=== PATIENT | female | born 1980 | race Caucasian/White ===

== ENCOUNTER 2019-01-03 07:35 | Emergency (ER) | payer OTHER ==
--- NOTE | 2019-01-03 08:58 | RAD REPORT ---
EXAM DESCRIPTION: RAD - Chest Pa And Lat (2 Views) - 01/03/2019 8:38 am CLINICAL HISTORY: Cough;Fever Chest pain. COMPARISON: No comparisons FINDINGS: The lungs are clear. The heart is normal in size. No displaced fractures. IMPRESSION: No acute or concerning finding suspected.
[2019-01-03] MEDS ORDERED: KETOROLAC 30 MG/ML INJ ONE (09:17)
[2019-01-03] MEDS ORDERED: DEXAMETHASONE 4 MG/ML VIAL ONE (09:17)
--- NOTE | 2019-01-03 09:29 | EDPHYS ---
Physician Documentation [facility] Name: Ruth Ann Esposito Age: 38 yrs Sex: Female : 1980 Arrival Date: 01/03/2019 Time: 07:39 Bed 8 Private MD: None, None ED Physician Sudhir Randall HPI: 01/03 08:30 This 38 yrs old Female presents to ER via Ambulatory with complaints of Flu pm1 Symptoms. 08:30 The patient or guardian reports cough, with no sputum, sore throat, sinus pain. Onset: pm1 The symptoms/episode began/occurred yesterday. Modifying factors: The symptoms are alleviated by nothing. the symptoms are aggravated by nothing. Associated signs and symptoms: Pertinent positives: earache, fever, sore throat, Pertinent negatives: chest pain, diarrhea, vomiting. Severity of symptoms: in the emergency department the symptoms are worse. The patient has not recently seen a physician. Patient was at a cook off yesterday and started getting symptoms of cough, sinus pain, subjective fever, bilateral ear pain, and sore throat. Patient is afraid that she might have pneumonia. 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 - Social history:: Smoking status: Patient/guardian denies using tobacco. - Ebola Screening: : No symptoms or risks identified at this time. ROS: 08:30 Eyes: Negative for injury, pain, redness, and discharge. pm1 08:30 Neck: Negative for injury, pain, and swelling, Cardiovascular: Negative for chest pain, palpitations, and edema. 08:30 Abdomen/GI: Negative for abdominal pain, nausea, vomiting, diarrhea, and constipation, Back: Negative for injury and pain, : Negative for injury, bleeding, discharge, and swelling, MS/Extremity: Negative for injury and deformity, Skin: Negative for injury, rash, and discoloration, Neuro: Negative for headache, weakness, numbness, tingling, and seizure. 08:30 Constitutional: Positive for body aches, fever, Negative for poor PO intake. 08:30 ENT: Positive for ear pain, sinus congestion, sinus pain, sore throat, Negative for drainage from ear(s). 08:30 Respiratory: Positive for cough, with no reported sputum, Negative for shortness of breath, sputum production, wheezing. Exam: 08:30 Constitutional: This is a well developed, well nourished patient who is awake, alert, pm1 and in no acute distress. Eyes: Pupils equal round and reactive to light, extra-ocular motions intact. Lids and lashes normal. Conjunctiva and sclera are non-icteric and not injected. Cornea within normal limits. Periorbital areas with no swelling, redness, or edema. ENT: Nares patent. No nasal discharge, no septal abnormalities noted. Tympanic membranes are normal and external auditory canals are clear. Oropharynx with no redness, swelling, or masses, exudates, or evidence of obstruction, uvula midline. Mucous membranes moist. 08:30 Neck: Trachea midline, no thyromegaly or masses palpated, and no cervical lymphadenopathy. Supple, full range of motion without nuchal rigidity, or vertebral point tenderness. No Meningismus. Chest/axilla: Normal chest wall appearance and motion. Nontender with no deformity. No lesions are appreciated. Cardiovascular: Regular rate and rhythm with a normal S1 and S2. No gallops, murmurs, or rubs. Normal PMI, no JVD. No pulse deficits. Respiratory: Lungs have equal breath sounds bilaterally, clear to auscultation and percussion. No rales, rhonchi or wheezes noted. No increased work of breathing, no retractions or nasal flaring. Abdomen/GI: Soft, non-tender, with normal bowel sounds. No distension or tympany. No guarding or rebound. No evidence of tenderness throughout. Back: No spinal tenderness. No costovertebral tenderness. Full range of motion. Skin: Warm, dry with normal turgor. Normal color with no rashes, no lesions, and no evidence of cellulitis. MS/ Extremity: Pulses equal, no cyanosis. Neurovascular intact. Full, normal range of motion. 08:30 Head/face: Sinus tenderness, that is mild, is located over the left frontal sinus and right maxillary sinus. 08:30 Neuro: Orientation: is normal, Motor: is normal, moves all fours. Vital Signs: 07:51 Weight 74.84 kg (R); Height 5 ft. 5 in. (165.10 cm) (R); Pain 8/10; aa5 07:54 BP 143 / 106; Pulse 105; Resp 22; Temp 99.6; Pulse Ox 100% on R/A; pc1 09:36 BP 122 / 97; Pulse 97; Resp 21; Pulse Ox 98% on R/A; Pain 9/10; jb1 07:51 Body Mass Index 27.46 (74.84 kg, 165.10 cm) aa5 MDM: 07:48 Patient medically screened. pm1 08:59 Data reviewed: vital signs. Data interpreted: Pulse oximetry: on room air is 100 %. pm1 Interpretation: normal. Counseling: I had a detailed discussion with the patient and/or guardian regarding: the historical points, exam findings, and any diagnostic results supporting the discharge/admit diagnosis, lab results, radiology results. 01/03 08:04 Order name: Flu; Complete Time: 08:38 pm1 01/03 08:04 Order name: Strep; Complete Time: 08:28 pm1 01/03 08:04 Order name: Chest Pa And Lat (2 Views) XRAY; Complete Time: 08:58 pm1 01/03 09:02 Order name: Throat Culture EDMS Administered Medications: 09:10 Drug: TORadol 60 mg Route: IM; Site: right gluteus; hj 09:26 Follow up: Response: Pain is decreased bp 09:12 Drug: Decadron 10 mg {Note: GIVEN PO.} Route: IM; Site: Other; hj 09:26 Follow up: Response: Pain is decreased bp 09:26 Drug: Zofran 4 mg Route: PO; bp 10:04 Follow up: Response: Nausea is decreased bp 10:15 Drug: [place] 10 mg-325 mg 1 tabs Route: PO; bp 10:15 Follow up: Response: Medication administered at discharge. bp Disposition: 14:15 Co-signature as Attending Physician, Sudhir Randall MD I agree with the assessment and karlene plan of care. Disposition: 01/03/19 09:29 Discharged to Home. Impression: Acute pharyngitis, Otalgia, bilateral. - Condition is Stable. - Discharge Instructions: Earache, Adult, Pharyngitis. - Prescriptions for Augmentin 875- 125 mg Oral Tablet - take 1 tablet by ORAL route every 12 hours for 10 days; 20 tablet. Medrol (Alvin) 4 mg Oral Tablets, Dose Pack - take 1 tablet by ORAL route as directed - follow package instructions; 1 packet. Diclofenac Sodium 75 mg Oral Tablet Sustained Release - take 1 tablet by ORAL route 2 times per day; 30 tablet. - Medication Reconciliation Form, Thank You Letter, Antibiotic Education, Work release form form. - Follow up: Emergency Department; When: As needed; Reason: Worsening of condition. Follow up: Private Physician; When: 2 - 3 days; Reason: Recheck today's complaints, Continuance of care, Re-evaluation by your physician. - Problem is new. - Symptoms have improved. Signatures: Dispatcher [employer] EDMS Sudhir Randall MD MD cha Calderon, Audri, RN RN aa5 Domingo Moy RN RN hj Sina Rosales, RIVERA BIODIESEL PLANT MANAGER pm1 Valeriy Harvey RN RN bp Corrections: (The following items were deleted from the chart) 10:21 09:29 01/03/2019 09:29 Discharged to Home. Impression: Acute pharyngitis; Otalgia, bp bilateral. Condition is Stable. Forms are Medication Reconciliation Form, Thank You Letter, Antibiotic Education, Prescription Opioid Use. Follow up: Emergency Department; When: As needed; Reason: Worsening of condition. Follow up: Private Physician; When: 2 - 3 days; Reason: Recheck today's complaints, Continuance of care, Re-evaluation by your physician. Problem is new. Symptoms have improved. pm1
--- NOTE | 2019-01-03 09:29 | ER ---
Nurse's Notes [facility] Name: Ruth Ann Esposito Age: 38 yrs Sex: Female : 1980 Arrival Date: 01/03/2019 Time: 07:39 Bed 8 Private MD: None, None Diagnosis: Acute pharyngitis;Otalgia, bilateral Presentation: 01/03 07:43 Presenting complaint: Patient states: "my right lung corral and I was at a cook-off aa5 yesterday so I don't know if I took too much smoke in". Pt reports sore throat, hoarse voice, and cough since yesterday. Pt also reports fever. 07:43 Transition of care: patient was not received from another setting of care. Onset of aa5 symptoms was December 2018. Risk Assessment: Do you want to hurt yourself or someone else? Patient reports no desire to harm self or others. Care prior to arrival: None. 07:43 Method Of Arrival: Ambulatory aa5 07:43 Acuity: BELINDA 3 aa5 07:58 Initial Sepsis Screen: Does the patient meet any 2 criteria? RR > 20 per min. No. pc1 Patient's initial sepsis screen is negative. Does the patient have a suspected source of infection? Yes: Other: Rule out strep. Triage Assessment: 07:57 General: Appears uncomfortable, well groomed, Behavior is calm, cooperative. 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 - Social history:: Smoking status: Patient/guardian denies using tobacco. - Ebola Screening: : No symptoms or risks identified at this time. Screenin:56 Abuse screen: Denies threats or abuse. Denies injuries from another. Nutritional pc1 screening: No deficits noted. Tuberculosis screening: No symptoms or risk factors identified. Fall Risk None identified. Assessment: 07:54 Pain: Complains of pain in chest Pain does not radiate. Pain currently is 9 out of 10 pc1 on a pain scale. Quality of pain is described as Burning sensation upon coughing. Respiratory: Breath sounds are clear bilaterally. 09:40 Reassessment: D/C ON HOLD FOR PROVIDER RE-EVAL. bp 10:04 Reassessment: Rx GIVEN TO FAMILY TO HAVE FILLED. PT REFUSING D/C UNTIL GIVEN "SOMETHING bp STRONGER". PROVIDER AWARE. 10:18 Reassessment: PT D/C HOME AMBULATORY WITH FAMILY, DX WITH SINUS INFECTION. bp Vital Signs: 07:51 Weight 74.84 kg (R); Height 5 ft. 5 in. (165.10 cm) (R); Pain 8/10; aa5 07:54 BP 143 / 106; Pulse 105; Resp 22; Temp 99.6; Pulse Ox 100% on R/A; pc1 09:36 BP 122 / 97; Pulse 97; Resp 21; Pulse Ox 98% on R/A; Pain 9/10; jb1 07:51 Body Mass Index 27.46 (74.84 kg, 165.10 cm) aa5 ED Course: 07:39 Patient arrived in ED. dl4 07:39 None, None is Private Physician. dl4 07:43 Arm band placed on. aa5 07:47 Valeriy Harvey, MUKESH is Primary Nurse. bp 07:48 Sina Rosales, ERP CONSULTANT is PHCP. pm1 07:49 Triage completed. aa5 08:24 Sudhir Randall MD is Attending Physician. pm1 08:25 Patient moved to radiology via wheelchair. jb2 08:32 Patient has correct armband on for positive identification. Bed in low position. Call bp light in reach. Side rails up X 1. 08:33 X-ray completed. Patient tolerated procedure well. Patient moved back from radiology. jb2 08:38 Chest Pa And Lat (2 Views) XRAY In Process Unspecified. EDMS 10:19 No provider procedures requiring assistance completed. IV discontinued, intact, bp bleeding controlled, No redness/swelling at site. Pressure dressing applied. Administered Medications: 09:10 Drug: TORadol 60 mg Route: IM; Site: right gluteus; hj 09:26 Follow up: Response: Pain is decreased bp 09:12 Drug: Decadron 10 mg {Note: GIVEN PO.} Route: IM; Site: Other; hj 09:26 Follow up: Response: Pain is decreased bp 09:26 Drug: Zofran 4 mg Route: PO; bp 10:04 Follow up: Response: Nausea is decreased bp 10:15 Drug: [place] 10 mg-325 mg 1 tabs Route: PO; bp 10:15 Follow up: Response: Medication administered at discharge. bp Outcome: 09:29 Discharge ordered by . pm1 10:19 Discharged to home ambulatory, with family. bp 10:19 Condition: stable 10:19 Discharge instructions given to patient, Instructed on discharge instructions, follow up and referral plans. medication usage, Demonstrated understanding of instructions, follow-up care, medications, Prescriptions given X 3. 10:21 Patient left the ED. bp Signatures: Dispatcher [employer] EDMS Adam Ch jb1 Layo Galvez jb2 Emely Valdivia RN RN aa5 Domingo Moy RN RN Sina Rosales, RIVERA ERP CONSULTANT pm1 Valeriy Harvey RN RN Pedro Luis Jarquin dl4 Sina Campos pc1
[2019-01-03] MEDS ORDERED: ONDANSETRON 4 MG (ODT) TAB ONE (09:34)
[2019-01-03] MEDS ORDERED: HYDROCODONE/APAP 10/325 TAB ONE (10:22)
== END 2019-01-03 10:21 | disposition home or self-care (01) ==
LOC: ER 07:35
DX: J02.9 Acute pharyngitis, unspecified (principal); H92.03 Otalgia, bilateral; Z88.6 Allergy status to analgesic agent; Z88.8 Allergy status to other drugs, medicaments and biological substances
CPT/HCPCS: 71046; 87070; 87081; 87804; 96372; 99283

== ENCOUNTER 2021-01-30 15:24 | Emergency (ER) | payer BC ==
--- OUTSIDE RECORDS SUMMARY | 2021-01-30 15:28 | XMS REPORT | Continuity of Care Document ---
:1980 Author Organization [facility] t Address [address] [place] [place] [address] Care Team Providers Name Role Phone AGUSTO Attending Clinician Unavailable LIVE Attending Clinician Unavailable Lis KRAMER, Darby Attending Clinician Doctor Unassigned, Name Attending Clinician Unavailable Ceci KRAMER Attending Clinician Gonzalez BARAJAS H Attending Clinician Problems This patient has no known problems. Allergies, Adverse Reactions, Alerts This patient has no known allergies or adverse reactions. Medications This patient has no known medications. Procedures This patient has no known procedures. Encounters Start End Encounter Admission Attending Care Care Encounter Source Date/Time Date/Time Type Type Clinicians Facility Department ID 2020-11-14 2020-11-14 Emergency [facility] [id number] [place] 00:00:00 00:00:00 PELON [address] 2020-10-16 2020-10-16 Outpatient [facility] [id number] [place] 00:00:00 00:00:00 MARTHA [address] 2020-10-11 2020-10-11 Outpatient [facility] [id number] [place] 00:00:00 00:00:00 MARTHA [address] 2020-10-11 2020-10-11 Outpatient [facility] [id number] [place] 00:00:00 00:00:00 MARTHA [address] 2020-09-19 2020-09-19 Emergency [facility] [id number] 15:21:00 20:20:00 Ly Veliz [id number] [place] [id number] [place] [id number] 2020-09-19 2020-09-19 Orders Doctor ARACELIS [id number] 00:00:00 00:00:00 Only Unassigned, TRACY [id number] [facility] [id number] 2020-07-08 2020-07-08 Refill [facility] [id number] 00:00:00 00:00:00 [facility] [id number] [place] [id number] [facility] [id number] [address] 2020-06-12 2020-06-12 Telephone ARACELIS Roth [id number] 00:00:00 00:00:00 Dheeraj MOLINA [id number] [facility] [id number] Results This patient has no known results.
--- NOTE | 2021-01-30 16:47 | RAD REPORT ---
EXAM DESCRIPTION: CT - [id number] - 01/30/2021 4:24 pm CLINICAL HISTORY: TRAUMA, head and neck injury, headache, neck pain COMPARISON: <Comparisons> TECHNIQUE: Axial 5 mm thick images of the head were obtained. Axial 2 mm thick images of the cervic al spine were obtained with sagittal and coronal reconstruction images generated and reviewed. All CT scans are performed using dose optimization technique as appropriate and may include automated exposure control or mA/KV adjustment according to patient size. FINDINGS: No intracranial hemorrhage, mass, edema or acute intracranial finding. No suspicion for ac asa'[place] infarction. No extra-axial fluid collections. Mastoid air cells are clear. Left deviation of the nasal septum is present. A 14 millimeter rounded mass in the medial right maxillary sinus is probably a small polyp. Patient has a prominent sella turcica with CSF attenuation. There does appear to be p ituitary tissue along the floor of the sella. This is most likely an empty sella configuration rather than a cystic sella mass. No globe or orbit abnormality seen. Cervical body height and alignment are normal. No disk space narrowing. No fracture or acute bony abn ormality. Small calcific densities adjacent to the anterior margin C5 and C6 inferior endplates do no t represent an acute process. Central canal detail is inherently limited. No paraspinal mass or hematoma. IMPRESSION: No hemorrhage, edema or acute intracranial finding. Negative CT cervical spine examination for acute or significant finding. Patient has a prominent sella turcica that is believed to be empty sella variant rather than cystic s melvi mass. If there are ongoing clinical concerns, patient can undergo nonemergent outpatient contras t-enhanced MR pituitary study.
--- NOTE | 2021-01-30 17:07 | EDPHYS ---
[facility] Name: Ruth Ann Esposito Age: 40 yrs Sex: Female : 1980 Arrival Date: 01/30/2021 Time: 15:26 Bed Waiting Private MD: Hector Soto C ED Physician Jayme Shaffer HPI: 01/30 18:06 This 40 yrs old Female presents to ER via Wheelchair with complaints of Head kb Injury With LOC-Adult. 18:06 The patient or guardian reports injury, swelling, tenderness. The complaints affect the kb left parietal area. Context of injury: The problem was sustained at home, resulted from a direct blow, frozen chicken. Onset: The symptoms/episode began/occurred just prior to arrival. Associated signs and symptoms: Loss of consciousness: This patient did not experience any loss of consciousness. Pertinent positives: dazed, nausea, neck pain. Severity of symptoms: At their worst the symptoms were moderate, in the emergency department the symptoms are unchanged. The patient has not experienced similar symptoms in the past. The patient has not recently seen a physician. 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 - Social history:: Smoking status: Patient denies any tobacco usage or history of. ROS: 18:40 Constitutional: Negative for fever, chills, and weight loss, Eyes: Negative for injury, kb pain, redness, and discharge, MS/Extremity: Negative for injury and deformity, Skin: Negative for injury, rash, and discoloration. 18:40 Neuro: Positive for headache. Exam: 18:41 Constitutional: This is a well developed, well nourished patient who is awake, alert, kb and in no acute distress. Eyes: Pupils equal round and reactive to light, extra-ocular motions intact. Lids and lashes normal. Conjunctiva and sclera are non-icteric and not injected. Cornea within normal limits. Periorbital areas with no swelling, redness, or edema. Skin: Warm, dry with normal turgor. Normal color. MS/ Extremity: Pulses equal, no cyanosis. Neurovascular intact. Full, normal range of motion. Neuro: Awake and alert, GCS 15, oriented to person, place, time, and situation. Moves all extremities. Normal gait. 18:41 Head/face: Noted is no obvious of injury or deformity except hematoma, that is moderate, of the left side of the back of head. Vital Signs: 15:46 BP 129 / 65; Pulse 84; Resp 16 S; Temp 97.3(TE); Pulse Ox 97% on R/A; Weight 88.45 kg ca1 (R); Height 5 ft. 6 in. (167.64 cm) (R); Pain 7/10; 17:08 BP 133 / 89; Pulse 81; Resp 16 S; Pulse Ox 98% ; ca1 15:46 Body Mass Index 31.47 (88.45 kg, 167.64 cm) ca1 Kaila Coma Score: 17:06 Eye Response: spontaneous(4). Verbal Response: oriented(5). Motor Response: obeys kb commands(6). Total: 15. 18:06 Eye Response: spontaneous(4). Verbal Response: oriented(5). Motor Response: obeys kb commands(6). Total: 15. MDM: 17:06 Data reviewed: vital signs, nurses notes. Data interpreted: Pulse oximetry: on room air kb is 97 %. Interpretation: normal. Counseling: I had a detailed discussion with the patient and/or guardian regarding: the historical points, exam findings, and any diagnostic results supporting the discharge/admit diagnosis, radiology results, the need for outpatient follow up, a family practitioner, to return to the emergency department if symptoms worsen or persist or if there are any questions or concerns that arise at home. 17:07 Patient medically screened. kb 01/30 16:16 Order name: Head C Spine Mpr Wo Con; Complete Time: 17:09 EDMS Administered Medications: No medications were administered Disposition: 01/31 08:03 Co-signature as Attending Physician, Jayme Shaffer MD I agree with the assessment and kdr plan of care. Disposition: 01/30/21 17:07 Discharged to Home. Impression: Superficial injury of scalp. - Condition is Stable. - Discharge Instructions: Hematoma, Fozc-[id number], Concussion, Adult, [id number], Head Injury, Adult, [id number]-[id number]. - Medication Reconciliation Form, Thank You Letter, Antibiotic Education, Prescription Opioid Use form. - Follow up: Emergency Department; When: As needed; Reason: Worsening of condition. Follow up: Hector Soto MD; When: 2 - 3 days; Reason: Recheck today's complaints, Continuance of care, Re-evaluation by your physician. Signatures: Dispatcher [employer] EDMT Eileen Jerome, PLASTIC SURGERY NURSE-C PLASTIC SURGERY NURSE-Ckb Jayme Shaffer MD MD [facility] Bianca Pinzon, RN RN ca1 Corrections: (The following items were deleted from the chart) 01/30 16:16 15:57 Head Brain Wo Cont+CT.RAD.BRZ ordered. [facility] 17:11 17:07 01/30/2021 17:07 Discharged to Home. Impression: Superficial injury of scalp. ca1 Condition is Stable. Forms are Medication Reconciliation Form, Thank You Letter, Antibiotic Education, Prescription Opioid Use. Follow up: Emergency Department; When: As needed; Reason: Worsening of condition. Follow up: Hector Soto; When: 2 - 3 days; Reason: Recheck today's complaints, Continuance of care, Re-evaluation by your physician. kb
--- NOTE | 2021-01-30 17:07 | ER ---
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 Was trying to catch myself and felt dizzy, my vision went blank and I feel like throwing up afterwards. Coronavirus screen: Client denies travel out of the [place] in the last 14 days. At this time, the client does not indicate any symptoms associated with coronavirus-19. Ebola Screen: Patient negative for fever greater than or equal to 101.5 degrees Fahrenheit, and additional compatible Ebola Virus Disease symptoms Patient denies exposure to infectious person. Patient denies travel to an Ebola-affected area in the 21 days before illness onset. No symptoms or risks identified at this time. Initial Sepsis Screen: Does the patient meet any 2 criteria? No. Patient's initial sepsis screen is negative. Does the patient have a suspected source of infection? No. Patient's initial sepsis screen is negative. Risk Assessment: Do you want to hurt yourself or someone else? Patient reports no desire to harm self or others. Onset of symptoms was January 30, 2021. 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 - Social history:: Smoking status: Patient denies any tobacco usage or history of. Screenin:08 Abuse screen: Denies threats or abuse. Denies injuries from another. Nutritional ca1 screening: No deficits noted. Tuberculosis screening: No symptoms or risk factors identified. Fall Risk None identified. Assessment: 17:08 General: Appears in no apparent distress. comfortable, Behavior is calm, cooperative, ca1 appropriate for age. Pain: Complains of pain in left parietal area Pain currently is 6 out of 10 on a pain scale. Neuro: Level of Consciousness is awake, alert, obeys commands, Oriented to person, place, time, situation. Derm: Skin is intact, is healthy with good turgor, Skin is pink, warm \T\ dry. Musculoskeletal: Circulation, motion, and sensation intact. Capillary refill < 3 seconds. Vital Signs: 15:46 BP 129 / 65; Pulse 84; Resp 16 S; Temp 97.3(TE); Pulse Ox 97% on R/A; Weight 88.45 kg ca1 (R); Height 5 ft. 6 in. (167.64 cm) (R); Pain 7/10; 17:08 BP 133 / 89; Pulse 81; Resp 16 S; Pulse Ox 98% ; ca1 15:46 Body Mass Index 31.47 (88.45 kg, 167.64 cm) ca1 Kaila Coma Score: 17:06 Eye Response: spontaneous(4). Verbal Response: oriented(5). Motor Response: obeys kb commands(6). Total: 15. 18:06 Eye Response: spontaneous(4). Verbal Response: oriented(5). Motor Response: obeys kb commands(6). Total: 15. ED Course: 15:26 Patient arrived in ED. am2 15:26 Hector Soto MD is Private Physician. am2 15:49 Triage completed. ca1 15:49 Arm band placed on right wrist. ca1 16:24 Head C Spine Mpr Wo Con In Process Unspecified. EDMS 17:04 Eileen Jerome FNP-C is PHCP. kb 17:04 Jayme Shaffer MD is Attending Physician. kb 17:07 Hector Soto MD is Referral Physician. kb 17:07 Bianca Pinzon, MUKESH is Primary Nurse. ca1 17:08 Patient has correct armband on for positive identification. ca1 17:09 No provider procedures requiring assistance completed. Patient did not have IV access ca1 during this emergency room visit. Administered Medications: No medications were administered Outcome: 17:07 Discharge ordered by . kb 17:11 Discharged to home ambulatory, with significant other. ca1 17:11 Condition: stable 17:11 Discharge instructions given to patient, Instructed on discharge instructions, follow up and referral plans. Demonstrated understanding of instructions, follow-up care. 17:11 Patient left the ED. ca1 Signatures: Dispatcher [employer] Eileen Carr, BEATRICE KRAMER-Jeannette Ramsay Cheryl RN RN ca1
[2021-01-30 17:30] VITALS: TEMP 97.3
[2021-01-30 17:31] VITALS: BP 133/89; O2SAT 98
== END 2021-01-30 17:11 | disposition home or self-care (01) ==
LOC: ER 15:24
DX: S00.00XA Unspecified superficial injury of scalp, initial encounter (principal); W22.8XXA Striking against or struck by other objects, initial encounter; Y92.009 Unspecified place in unspecified non-institutional (private) residence as the place of occurrence of the external cause
CPT/HCPCS: 70450; 72125; 99283